=== PATIENT | female | born 1965 | race Caucasian/White ===

== ENCOUNTER 2025-07-09 12:09 | Emergency (ER) | payer BC ==
[2025-07-09] MEDS ORDERED: Naproxen 500 MG TAB ONE (12:28)
== END 2025-07-09 13:48 | disposition home or self-care (01) ==
LOC: NAV ERS 12:09
DX: S29.011A Strain of muscle and tendon of front wall of thorax, initial encounter (principal); J06.9 Acute upper respiratory infection, unspecified; B34.9 Viral infection, unspecified; R29.700 NIHSS score 0; X50.3XXA Overexertion from repetitive movements, initial encounter
CPT/HCPCS: 99284